=== PATIENT | male | born 1990 | race Caucasian/White ===

== ENCOUNTER 2021-03-18 19:17 | Emergency (ER) | payer SELFPAY ==
--- OUTSIDE RECORDS SUMMARY | 2021-03-18 19:20 | XMS REPORT | Continuity of Care Document ---
:1990 Author Organization [facility] t Address [address] [place] [address] [address]. [address]. [address] [place] [address] Care Team Providers Name Role Phone Rosa GREY Attending Clinician Unavailable Rosa GREY Admitting Clinician Unavailable Problems This patient has no known problems. Allergies, Adverse Reactions, Alerts This patient has no known allergies or adverse reactions. Medications This patient has no known medications. Procedures This patient has no known procedures. Encounters Start End Encounter Admission Attending Care Care Encounter Source Date/Time Date/Time Type Type Clinicians Facility Department ID 2018-06-14 2018-06-14 Outpatient [facility] [id number] [place] 08:50:00 09:29:00 [facility] Results This patient has no known results.
--- NOTE | 2021-03-18 19:59 | ER ---
Nurse's Notes [facility] Name: Indra Arbams Age: 30 yrs Sex: Male : 1990 Arrival Date: 03/18/2021 Time: 19:20 Bed 10 Private MD: Diagnosis: Displaced fracture of base of fourth metacarpal bone, right hand Presentation: 03/18 19:26 Coronavirus screen: Client denies travel out of the [place] in the last 14 days. At this ca1 time, the client does not indicate any symptoms associated with coronavirus-19. Ebola Screen: Patient negative for fever greater than or equal to 101.5 degrees Fahrenheit, and additional compatible Ebola Virus Disease symptoms Patient denies exposure to infectious person. Patient denies travel to an Ebola-affected area in the 21 days before illness onset. No symptoms or risks identified at this time. Initial Sepsis Screen: Does the patient meet any 2 criteria? No. Patient's initial sepsis screen is negative. Does the patient have a suspected source of infection? No. Patient's initial sepsis screen is negative. Risk Assessment: Do you want to hurt yourself or someone else? Patient reports no desire to harm self or others. Onset of symptoms was March 18, 2021. 19:26 Method Of Arrival: Ambulatory ca1 19:26 Acuity: CAITLIN 4 ca1 19:26 Chief complaint: Patient states: 3 nights [employer], punch a wooden door with R hand. R hand ca1 pain and swollen. Triage Assessment: 19:30 Injury Description: swollen right hand. rr5 Historical: - Allergies: 19:28 No Known Allergies; ca1 - Home Meds: 19:28 None [Active]; ca1 - PMHx: 19:28 None; ca1 - PSHx: 19:28 None; ca1 - Immunization history:: Adult Immunizations not up to date. - Social history:: Smoking status: Patient reports the use of cigarette tobacco products, smokes one-half pack cigarettes per day, Patient uses alcohol, occasionally. Screenin:30 Abuse screen: Denies threats or abuse. Denies injuries from another. Nutritional rr5 screening: No deficits noted. Tuberculosis screening: No symptoms or risk factors identified. Fall Risk None identified. Total So Fall Scale indicates No Risk (0-24 pts). Assessment: 19:30 General: Appears in no apparent distress. uncomfortable, Behavior is calm, cooperative, rr5 appropriate for age. 19:30 Pain: Complains of pain in right hand Pain currently is 2 out of 10 on a pain scale. rr5 Quality of pain is described as aching, Pain began suddenly, Is intermittent. Neuro: Level of Consciousness is awake, alert, obeys commands, Oriented to person, place, time. Cardiovascular: Capillary refill < 3 seconds Patient's skin is warm and dry. Respiratory: Airway is patent Respiratory effort is even, unlabored, Respiratory pattern is regular, symmetrical. Derm: Skin is intact, is healthy with good turgor, Skin temperature is warm. Musculoskeletal: Capillary refill < 3 seconds, Swelling present in right hand. 20:23 Reassessment: Patient appears in no apparent distress at this time. Patient is alert, rr5 oriented x 3, equal unlabored respirations, skin warm/dry/pink. provider rechecked the splint with order for may go home, discharge instruction given and explained without complaints made. Vital Signs: 19:26 Pulse 99; Resp 16 S; Temp 98.2; Pulse Ox 95% on R/A; Weight 65.77 kg (R); Height 5 ft. ca1 5 in. (165.10 cm) (R); Pain 2/10; 19:28 BP 151 / 103; ca1 20:22 BP 142 / 85; Pulse 85; Resp 19; Pulse Ox 98% ; rr5 19:26 Body Mass Index 24.13 (65.77 kg, 165.10 cm) ca1 ED Course: 19:20 Patient arrived in ED. es 19:26 Triage completed. ca1 19:28 [facility] Story [facility]C [facility] kb 19:28 Negrito Garcia MD is Attending Physician. kb 19:28 Arm band placed on right wrist. ca1 19:29 Brennon Mesa, RAUL is Primary Nurse. rr5 19:30 Patient has correct armband on for positive identification. Bed in low position. rr5 19:56 Hand Right 3 View XRAY In Process Unspecified. EDMS 20:14 Orthoglass splint: Ulnar gutter/Boxer splint applied on right forearm. ds4 20:22 No provider procedures requiring assistance completed. Patient did not have IV access rr5 during this emergency room visit. Administered Medications: No medications were administered Outcome: 19:58 Discharge ordered by . miguel 20:22 Discharged to home ambulatory. rr5 20:22 Condition: stable 20:22 Discharge instructions given to patient, Instructed on discharge instructions, follow up and referral plans. medication usage, Demonstrated understanding of instructions, follow-up care, medications, Prescriptions given X 1. 20:24 Patient left the ED. rr5 Signatures: Dispatcher [employer] EDLuz Winn, APPLICATIONS ANALYST-C APPLICATIONS ANALYST-Yolis Mcgee Donovan ds4 Brennon Mesa, RN RN rr5 Lorraine Buitrago RN RN ca1
--- NOTE | 2021-03-18 19:59 | EDPHYS ---
Physician Documentation [facility] Name: Indra Abrams Age: 30 yrs Sex: Male : 1990 Arrival Date: 03/18/2021 Time: 19:20 Bed 10 Private MD: ED Physician Negrito Garcia HPI: 03/18 19:55 This 30 yrs old Male presents to ER via Ambulatory with complaints of Hand kb Injury. 19:55 The patient or guardian reports injury, pain, swelling, tenderness. The complaints kb affect the dorsum of right hand. Context: The problem was sustained outdoors, resulted from using own fist to strike, a solid object. Onset: The symptoms/episode began/occurred 3 day(s) ago. Modifying factors: The symptoms are alleviated by nothing, the symptoms are aggravated by nothing. Associated signs and symptoms: The patient has no apparent associated signs or symptoms. Severity of symptoms: At their worst the symptoms were moderate, in the emergency department the symptoms are unchanged. The patient has not experienced similar symptoms in the past. The patient has not recently seen a physician. Pt reports he punched a wooden post 3 days ago. Swelling and bruising hasn't gone away so he wanted to get it checked. Historical: - Allergies: 19:28 No Known Allergies; ca1 - Home Meds: 19:28 None [Active]; ca1 - PMHx: 19:28 None; ca1 - PSHx: 19:28 None; ca1 - Immunization history:: Adult Immunizations not up to date. - Social history:: Smoking status: Patient reports the use of cigarette tobacco products, smokes one-half pack cigarettes per day, Patient uses alcohol, occasionally. ROS: 19:55 Constitutional: Negative for fever, chills, and weight loss. kb 19:55 MS/extremity: Positive for ecchymosis, pain, swelling, tenderness, of the dorsum of right hand. 19:55 All other systems are negative. Exam: 19:53 Constitutional: This is a well developed, well nourished patient who is awake, alert, kb and in no acute distress. Head/Face: Normocephalic, atraumatic. ENT: Moist Mucous membranes Respiratory: Respirations even and unlabored. No increased work of breathing, no retractions or nasal flaring. Neuro: Awake and alert, GCS 15, oriented to person, place, time, and situation. Moves all extremities. Normal gait. Psych: Awake, alert, with orientation to person, place and time. Behavior, mood, and affect are within normal limits. 19:53 Musculoskeletal/extremity: Extremities: grossly normal except: noted in the dorsum of right hand: ecchymosis, pain, swelling, tenderness, ROM: intact in all extremities, Circulation is intact in all extremities. Sensation intact. 19:53 Skin: Appearance: normal except for affected area, ecchymosis, noted on the, right hand, that are mild, that are moderate, of the dorsum of right hand, swelling, noted on the right hand, that are moderate. Vital Signs: 19:26 Pulse 99; Resp 16 S; Temp 98.2; Pulse Ox 95% on R/A; Weight 65.77 kg (R); Height 5 ft. ca1 5 in. (165.10 cm) (R); Pain 2/10; 19:28 BP 151 / 103; ca1 20:22 BP 142 / 85; Pulse 85; Resp 19; Pulse Ox 98% ; rr5 19:26 Body Mass Index 24.13 (65.77 kg, 165.10 cm) ca1 MDM: 19:29 Patient medically screened. kb 19:53 Data reviewed: vital signs, nurses notes. Data interpreted: Pulse oximetry: on room air kb is 95 %. Interpretation: normal. Counseling: I had a detailed discussion with the patient and/or guardian regarding: the historical points, exam findings, and any diagnostic results supporting the discharge/admit diagnosis, radiology results, the need for outpatient follow up, a orthopedic surgeon, to return to the emergency department if symptoms worsen or persist or if there are any questions or concerns that arise at home. 19:57 Test interpretation: by ED physician or midlevel provider: plain radiologic studies, kb minimally displaced fracture fourth metacarpal right hand. 03/18 19:28 Order name: Hand Right 3 View XRAY; Complete Time: 20:06 kb 03/18 19:50 Order name: Ulnar Gutter splint; Complete Time: 20:16 kb Administered Medications: No medications were administered Disposition: 22:11 Co-signature as Attending Physician, Negrito Garcia MD. [email or web address] Disposition: 03/18/21 19:58 Discharged to Home. Impression: Displaced fracture of base of fourth metacarpal bone, right hand. - Condition is Stable. - Discharge Instructions: Metacarpal Fracture, [id number]. - Prescriptions for Ibuprofen 600 mg Oral Tablet - take 1 tablet by ORAL route every 6 hours As needed take with food; 30 tablet. - Medication Reconciliation Form, Thank You Letter, Antibiotic Education, Prescription Opioid Use, Work release form form. - Follow up: Emergency Department; When: As needed; Reason: Worsening of condition. Follow up: Private Physician; When: 2 - 3 days; Reason: Recheck today's complaints, Continuance of care, Re-evaluation by your physician. Signatures: Dispatcher [employer] EDMS Luz Story, [employer] CRM DEVELOPER-C [employer] CRM DEVELOPER-Negrito Smith MD MD pkl Roque, Raymond RN RN rr5 Lorraine Buitrago RN RN ca1 Corrections: (The following items were deleted from the chart) 20:24 19:58 03/18/2021 19:58 Discharged to Home. Impression: Displaced fracture of base of rr5 fourth metacarpal bone, right hand. Condition is Stable. Forms are Medication Reconciliation Form, Thank You Letter, Antibiotic Education, Prescription Opioid Use. Follow up: Emergency Department; When: As needed; Reason: Worsening of condition. Follow up: Private Physician; When: 2 - 3 days; Reason: Recheck today's complaints, Continuance of care, Re-evaluation by your physician. kb
--- NOTE | 2021-03-18 20:05 | RAD REPORT ---
EXAM DESCRIPTION: RAD - Hand Right 3 View - 03/18/2021 7:57 pm CLINICAL HISTORY: PAIN COMPARISON: <Comparisons> FINDINGS: Thin linear fracture seen involving midshaft fourth metacarpal. Mild adjacent soft tissue swelling.
[2021-03-18 20:40] VITALS: TEMP 98.2
[2021-03-18 20:42] VITALS: BP 142/85; O2SAT 98
== END 2021-03-18 20:24 | disposition home or self-care (01) ==
LOC: ER 19:17
PROC: 2W3CX1Z Immobilization of Right Lower Arm using Splint (ICD-10-PCS; principal; 2021-03-18)
DX: S62.314A Displaced fracture of base of fourth metacarpal bone, right hand, initial encounter for closed fracture (principal); F17.210 Nicotine dependence, cigarettes, uncomplicated; W22.09XA Striking against other stationary object, initial encounter
CPT/HCPCS: 99283

== ENCOUNTER 2021-08-27 19:27 | Emergency (ER) | payer SELFPAY ==
[2021-08-27 19:56] LABS: Urine Blood Trace-intact (Negative); Urine Glucose Negative (Negative); Urine Protein 1+ (Negative)
[2021-08-27] MEDS ORDERED: NA CHLORIDE 0.9% 1,000 ML ONE ×2 (20:24→22:21)
[2021-08-27] MEDS ORDERED: MORPHINE 4 MG/ML SYR ONE (20:30)
[2021-08-27] MEDS ORDERED: ONDANSETRON 4 MG/2 ML VIAL ONE (20:30)
[2021-08-27 20:37] LABS: Absolute Lymphocytes (CBC) 1.5 K/uL (0.7-4.9); Basophils % 1.2 % (0-1.3); Hematocrit 52.5 % (39.6-49.0); Lymphocytes % 23.3 % (15.3-44.8); MPV 7.7 fL (7.6-11.3)
[2021-08-27 20:54] LABS: Albumin 4.2 g/dL (3.4-5.0); Bilirubin Direct 0.1 mg/dL (0-0.2); Bilirubin Total 0.4 mg/dL (0.2-1.0); Potassium 3.7 mmol/L (3.5-5.1); Protein, Total 7.9 g/dL (6.4-8.2)
--- NOTE | 2021-08-27 21:57 | RAD REPORT ---
EXAM DESCRIPTION: CTAbdomen Pelvis W Contrast - 08/27/2021 9:46 pm CLINICAL HISTORY: abdominal COMPARISON: No comparisons TECHNIQUE: CT of the abdomen and pelvis was performed. All CT scans are performed using dose optimization technique as appropriate and may include automated exposure control or mA/KV adjustment according to patient size. FINDINGS: Lower chest: No acute abnormality. Liver: Subcentimeter low-density lesion in the posterior aspect of the right hepatic lobe is likely b enign. Biliary: No biliary ductal dilatation. Stomach: No significant focal abnormality. Duodenum: No significant focal abnormality. Pancreas: Stranding is present around the pancreatic head and uncinate Spleen: No significant abnormality. Adrenal: No suspicious lesions. Kidney/ureter: No hydronephrosis. No renal calculi. Retroperitoneum: No retroperitoneal adenopathy. Vascular: No aneurysm. Bowel: No significant focal abnormality. Normal appendix. Peritoneum: No ascites or free air. Bladder: Grossly unremarkable. Reproductive: No adnexal masses. Bones: No acute fracture. Other: n/a IMPRESSION: Stranding around the pancreatic head likely reflecting acute pancreatitis. No complicati ng features.
[2021-08-27] MEDS ORDERED: FAMOTIDINE 20 MG/2 ML VIAL IV ONE (22:21)
[2021-08-27] MEDS ORDERED: FENTANYL CITR 100 MCG/2 ML ONE (22:21)
[2021-08-27] MEDS ORDERED: HYDROMORPHONE HCL 1 MG/ML INJ ONE (23:34)
--- NOTE | 2021-08-28 00:24 | ER ---
Nurse's Notes [facility] Name: Indra Abrams Age: 31 yrs Sex: Male : 1990 Arrival Date: 08/27/2021 Time: 19:28 Bed 30 Private MD: Diagnosis: Acute Pancreatitis Presentation: 08/27 19:37 Chief complaint: Patient states: c/o lower abd pain that started this morning, pain sj1 progressively getting worse and now radiating to all quads, reports one episode of vomiting. Denies nausea and diarrhea at this time. Coronavirus screen: Vaccine status: Patient reports being unvaccinated. Ebola Screen: No symptoms or risks identified at this time. Initial Sepsis Screen: Does the patient meet any 2 criteria? No. Patient's initial sepsis screen is negative. Does the patient have a suspected source of infection? No. Patient's initial sepsis screen is negative. Risk Assessment: Do you want to hurt yourself or someone else? Patient reports no desire to harm self or others. Onset of symptoms was August 27, 2021. 19:37 Method Of Arrival: Ambulatory 1 19:37 Acuity: CAITLIN 3 sj1 Triage Assessment: 19:41 General: Appears in no apparent distress. uncomfortable, Behavior is calm, cooperative, sj1 appropriate for age. Pain: Complains of pain in abdomen Pain does not radiate. Pain currently is 8 out of 10 on a pain scale. at worst was 10 out of 10 on a pain scale. level that patient reports is acceptable is 0 out of 10 on a pain scale. Quality of pain is described as crampy, Pain began this morning Is continuous. EENT: No signs and/or symptoms were reported regarding the EENT system. Neuro: Level of Consciousness is awake, alert, obeys commands, Oriented to person, place, time, situation. Cardiovascular: No deficits noted. Respiratory: No deficits noted. GI: Reports lower abdominal pain, upper abdominal pain, vomiting. : No signs and/or symptoms were reported regarding the genitourinary system. Derm: No signs and/or symptoms reported regarding the dermatologic system. Musculoskeletal: No signs and/or symptoms reported regarding the musculoskeletal system. Historical: - Allergies: 19:41 No Known Allergies; sj1 - Home Meds: 19:41 None [Active]; sj1 - PMHx: 19:41 Depression; sj1 - PSHx: 19:41 None; sj1 - Immunization history:: Client reports having NOT received the Covid vaccine. - Social history:: Smoking status: Patient reports the use of cigarette tobacco products, smokes one-half pack cigarettes per day, Patient uses alcohol, on a daily basis. Patient/guardian denies using street drugs. Screenin:43 Abuse screen: Denies threats or abuse. Denies injuries from another. Nutritional sj1 screening: No deficits noted. Tuberculosis screening: No symptoms or risk factors identified. Fall Risk None identified. Assessment: 19:43 GI: Abd is soft. sj1 19:50 General: Appears uncomfortable, well groomed, Behavior is cooperative, anxious, Smells dc2 of alcohol. Pain: Complains of pain in generalized abdomen. 19:50 Neuro: No deficits noted. Denies blurred vision dizziness, headache. Respiratory: dc2 Airway is patent Breath sounds are clear bilaterally. Denies shortness of breath labored breathing. GI: Abdomen is round non-distended, Last BM was August 27, 2021. Bowel sounds present X 4 quads. Reports lower abdominal pain, upper abdominal pain, Parent/caregiver reports the patient having pain, States has had pain since waking up this morning. Pt reports drinking ETOH everynight for sleep. : No signs and/or symptoms were reported regarding the genitourinary system. Derm: No deficits noted. No signs and/or symptoms reported regarding the dermatologic system. Musculoskeletal: No deficits noted. 20:30 Pain: Complains of pain in Generalized abdomen, states pain med has helped, PRS 5/10 at dc2 this time. 22:30 Reassessment: Pt very restless, states pain is extremely bad and meds aren't helping. dc2 Will notify provider. 22:53 Reassessment: TEDDY Shipman to bedside to speak to patient regarding test results and pain. dc2 Vital Signs: 19:37 BP 171 / 111; Pulse 70; Resp 20 S; Temp 97.6; Pulse Ox 100% on R/A; Weight 65.77 kg sj1 (R); Height 5 ft. 5 in. (165.10 cm) (R); Pain 8/10; 20:00 BP 154 / 110; Pulse 84; Resp 19; Pulse Ox 100% on R/A; Pain 10/10; dc2 20:58 BP 165 / 118; Pulse 93; Resp 18; Pulse Ox 100% ; Pain 4/10; dc2 22:30 BP 189 / 120; Pulse 66; Resp 19; Pulse Ox 100% ; Pain 10/10; dc2 08/28 00:15 BP 180 / 102; Pulse 76; Resp 17; Pulse Ox 99% ; Pain 2/10; dc2 08/27 19:37 Body Mass Index 24.13 (65.77 kg, 165.10 cm) [facility] ED Course: 08/27 19:28 Patient arrived in ED. ja2 19:30 Ubmerto Mccall PA is PHCP. [facility] 19:30 Checo Lopez MD is Attending Physician. [facility] 19:41 Triage completed. sj1 19:41 Arm band placed on right wrist. sj1 19:43 Patient has correct armband on for positive identification. Bed in low position. Call sj1 light in reach. Side rails up X 1. 20:01 Inserted saline lock: 20 gauge in right antecubital area, using aseptic technique. dc2 Blood collected. 20:02 Basic Metabolic Panel Sent. dc2 20:02 CBC with Diff Sent. dc2 20:02 Hepatic Function Sent. dc2 20:02 Lipase Sent. dc2 20:17 Radha Whipple, RN is Primary Nurse. dc2 20:17 No provider procedures requiring assistance completed. dc2 20:59 No apparent distress. Resting quietly. Awaiting lab results. dc2 20:59 Bed in low position. Call light in reach. Side rails up X 1. monitor worker on. Pulse dc2 ox on. NIBP on. 21:46 CT Abd/Pelvis - IV Contrast Only In Process Unspecified. EDMS 21:[address] Patient moved back from [address]. dc2 21:[address] via wheelchair. dc2 08/28 00:23 Ricardo Cabrera MD is Referral Physician. [facility] 00:30 IV discontinued, intact, bleeding controlled, No redness/swelling at site. Pressure dc2 dressing applied. Administered Medications: 08/27 20:00 Drug: morphine 4 mg Route: IVP; Site: right antecubital; dc2 20:30 Follow up: Response: Pain is decreased dc2 20:58 Follow up: Response: Pain is decreased dc2 20:01 Drug: NS 0.9% 1000 ml Route: IV; Rate: 1 bolus; Infused Over: 1 hrs; Site: right dc2 antecubital; 20:58 Follow up: IV Status: Completed infusion; IV Intake: 1000ml dc2 21:00 Follow up: IV Status: Completed infusion; IV Intake: 1000ml dc2 20:10 Drug: Zofran (Ondansetron) 4 mg Route: IVP; Infused Over: 1 mins; Site: right dc2 antecubital; 20:32 Follow up: Response: No adverse reaction dc2 20:57 Follow up: Response: Nausea is decreased dc2 21:53 Drug: NS 0.9% 1000 ml Route: IV; Rate: 1 bolus; Infused Over: 1 hrs; Site: right dc2 antecubital; Delivery: Primary tubing; 23:00 Follow up: IV Status: Completed infusion; IV Intake: 1000ml dc2 21:56 Drug: fentaNYL (PF) 50 mcg Route: IVP; Infused Over: 2 mins; Site: right antecubital; dc2 22:30 Follow up: Response: Pain is unchanged, physician notified dc2 21:57 Drug: Pepcid (famotidine) 20 mg Route: IVP; Site: right antecubital; dc2 22:49 Follow up: Response: Pain is unchanged, physician notified dc2 23:20 Drug: Dilaudid (HYDROmorphone) 1 mg Route: IVP; Infused Over: 3 mins; Site: right dc2 antecubital; 08/28 00:00 Follow up: Response: Pain is decreased dc2 Intake: 08/27 20:58 IV: 1000ml; Total: 1000ml. dc2 21:00 IV: 1000ml; Total: 2000ml. dc2 23:00 IV: 1000ml; Total: 3000ml. dc2 Outcome: 08/28 00:23 Discharge ordered by MD. ya 00:30 Discharged to home ambulatory. dc2 00:30 Condition: stable 00:30 Discharge instructions given to patient, Instructed on discharge instructions, Demonstrated understanding of instructions, follow-up care. 00:37 Patient left the ED. dc2 Signatures: Dispatcher [employer] EDUmberto Lovell PA PA jmm Alexander, Jessica ja2 Charters, Denise, RN RN dc2 Kelby, Sade, RN RN sj1
--- NOTE | 2021-08-28 00:24 | EDPHYS ---
Physician Documentation [facility] Name: Indra Abrams Age: 31 yrs Sex: Male : 1990 Arrival Date: 08/27/2021 Time: 19:28 Bed 30 Private MD: NAZ Physician Checo Lopez HPI: 08/27 19:54 This 31 yrs old Male presents to ER via Ambulatory with complaints of jmm Abdominal Pain. 19:54 The patient presents with abdominal pain. Onset: The symptoms/episode began/occurred jmm gradually. The symptoms do not radiate. Associated signs and symptoms: Pertinent positives: nausea and vomiting, abdominal pain. The symptoms are described as achy. Modifying factors: The symptoms are alleviated by nothing, the symptoms are aggravated by alcohol. The patient has not experienced similar symptoms in the past. Historical: - Allergies: 19:41 No Known Allergies; sj1 - Home Meds: 19:41 None [Active]; sj1 - PMHx: 19:41 Depression; sj1 - PSHx: 19:41 None; sj1 - Immunization history:: Client reports having NOT received the Covid vaccine. - Social history:: Smoking status: Patient reports the use of cigarette tobacco products, smokes one-half pack cigarettes per day, Patient uses alcohol, on a daily basis. Patient/guardian denies using street drugs. ROS: 19:54 Constitutional: Negative for fever, chills, and weight loss, Cardiovascular: Negative jmm for chest pain, palpitations, and edema, Respiratory: Negative for shortness of breath, cough, wheezing, and pleuritic chest pain. 19:54 Abdomen/GI: Positive for abdominal pain. 19:54 All other systems are negative. Exam: 19:54 Constitutional: This is a well developed, well nourished patient who is awake, alert, jmm and in no acute distress. Head/Face: atraumatic. Eyes: EOMI, no conjunctival erythema appreciated ENT: Moist Mucus Membranes Neck: Trachea midline, Supple Chest/axilla: Normal chest wall appearance and motion. Cardiovascular: Regular rate and rhythm. No edema appreciated Respiratory: Normal respirations, no respiratory distress appreciated 19:54 Skin: General appearance color normal MS/ Extremity: Moves all extremities, no obvious deformities appreciated, no edema noted to the lower extremities Neuro: Awake and alert, normal gait Psych: Behavior is normal, Mood is normal, Patient is cooperative and pleasant 19:54 Abdomen/GI: Inspection: abdomen appears normal, Bowel sounds: normal, Palpation: soft, moderate abdominal tenderness, in all quadrants. Vital Signs: 19:37 BP 171 / 111; Pulse 70; Resp 20 S; Temp 97.6; Pulse Ox 100% on R/A; Weight 65.77 kg [facility] (R); Height 5 ft. 5 in. (165.10 cm) (R); Pain 8/10; 20:00 BP 154 / 110; Pulse 84; Resp 19; Pulse Ox 100% on R/A; Pain 10/10; dc2 20:58 BP 165 / 118; Pulse 93; Resp 18; Pulse Ox 100% ; Pain 4/10; dc2 22:30 BP 189 / 120; Pulse 66; Resp 19; Pulse Ox 100% ; Pain 10/10; dc2 08/28 00:15 BP 180 / 102; Pulse 76; Resp 17; Pulse Ox 99% ; Pain 2/10; dc2 08/27 19:37 Body Mass Index 24.13 (65.77 kg, 165.10 cm) [facility] MDM: 08/27 19:54 Patient medically screened. [facility] 08/28 00:15 Data reviewed: vital signs, nurses notes. Counseling: I had a detailed discussion with bhakti the patient and/or guardian regarding: the historical points, exam findings, and any diagnostic results supporting the discharge/admit diagnosis, lab results, radiology results, the need for outpatient follow up, to return to the emergency department if symptoms worsen or persist or if there are any questions or concerns that arise at home. ED course: Patient advised to follow up with pcp and otherwise given strict return precautions. Patient understood and agrees with the plan of care. . 08/27 19:56 Order name: Urine Dipstick-Ancillary; Complete Time: 20:03 [facility] 08/27 19:58 Order name: Basic Metabolic Panel; Complete Time: 20:59 [facility] 08/27 19:58 Order name: CBC with Diff; Complete Time: 20:51 [facility] 08/27 19:58 Order name: Hepatic Function; Complete Time: 20:59 [facility] 08/27 19:58 Order name: Lipase; Complete Time: 20:59 [facility] 08/27 21:23 Order name: CT Abd/Pelvis - IV Contrast Only; Complete Time: 21:59 [facility] 08/27 19:58 Order name: IV Saline Lock; Complete Time: 20:02 [facility] 08/27 19:58 Order name: Labs collected and sent; Complete Time: 20:02 [facility] Administered Medications: 08/27 20:00 Drug: morphine 4 mg Route: IVP; Site: right antecubital; dc2 20:30 Follow up: Response: Pain is decreased dc2 20:58 Follow up: Response: Pain is decreased dc2 20:01 Drug: NS 0.9% 1000 ml Route: IV; Rate: 1 bolus; Infused Over: 1 hrs; Site: right dc2 antecubital; 20:58 Follow up: IV Status: Completed infusion; IV Intake: 1000ml dc2 21:00 Follow up: IV Status: Completed infusion; IV Intake: 1000ml dc2 20:10 Drug: Zofran (Ondansetron) 4 mg Route: IVP; Infused Over: 1 mins; Site: right dc2 antecubital; 20:32 Follow up: Response: No adverse reaction dc2 20:57 Follow up: Response: Nausea is decreased dc2 21:53 Drug: NS 0.9% 1000 ml Route: IV; Rate: 1 bolus; Infused Over: 1 hrs; Site: right dc2 antecubital; Delivery: Primary tubing; 23:00 Follow up: IV Status: Completed infusion; IV Intake: 1000ml dc2 21:56 Drug: fentaNYL (PF) 50 mcg Route: IVP; Infused Over: 2 mins; Site: right antecubital; dc2 22:30 Follow up: Response: Pain is unchanged, physician notified dc2 21:57 Drug: Pepcid (famotidine) 20 mg Route: IVP; Site: right antecubital; dc2 22:49 Follow up: Response: Pain is unchanged, physician notified dc2 23:20 Drug: Dilaudid (HYDROmorphone) 1 mg Route: IVP; Infused Over: 3 mins; Site: right dc2 antecubital; 08/28 00:00 Follow up: Response: Pain is decreased dc2 Disposition: 08:02 Co-signature as Attending Physician, Checo Lopez MD I agree with the assessment and genaro plan of care. Disposition Summary: 08/28/21 00:23 Discharge Ordered Location: Home [facility] Condition: Stable jm Diagnosis - Acute Pancreatitis [facility] Followup: [facility] - With: Ricardo Cabrera MD - When: 2 - 3 days - Reason: Recheck today's complaints, Continuance of care, Re-evaluation by your physician Discharge Instructions: - Discharge Summary Sheet [facility] - Acute Pancreatitis [facility] Forms: - Medication Reconciliation Form [facility] - Thank You Letter [facility] - Antibiotic Education [facility] - Prescription Opioid Use [facility] - Work release form mw2 Signatures: Dispatcher [employer] EDCheco Torres MD MD cha Mickail, Joel, PA PA [facility] Radha Whipple RN RN dc2 Dora Lama RN RN sj1
[2021-08-28 00:46] VITALS: TEMP 97.6
[2021-08-28 00:51] VITALS: BP 180/102; O2SAT 99
== END 2021-08-28 00:37 | disposition home or self-care (01) ==
LOC: ER 19:27
DX: K85.90 Acute pancreatitis without necrosis or infection, unspecified (principal); F17.210 Nicotine dependence, cigarettes, uncomplicated
CPT/HCPCS: 36415; 74177; 80048; 80076; 81003; 83690; 85025; 96361; 96374; 96375; 99285; J1170; J2405; J3010; J7030; Q9967

== ENCOUNTER 2021-12-05 06:13 | Emergency (ER) | payer SELFPAY ==
--- OUTSIDE RECORDS SUMMARY | 2021-12-05 06:19 | XMS REPORT | Continuity of Care Document ---
:1990 Author Organization [facility] t Address [address] [place] [address] [address] [place] [address] Care Team Providers Name Role Phone Rosa [...] Department ID 2018-06-14 2018-06-14 Outpatient [facility] [id number] [place] 08:50:00 09:29:00 [facility] Results This patient has no known results.
[2021-12-05] MEDS ORDERED: NA CHLORIDE 0.9% 1,000 ML ONE (06:24)
[2021-12-05] MEDS ORDERED: MORPHINE 4 MG/ML SYR ONE (06:24)
[2021-12-05 06:36] LABS: Absolute Lymphocytes (CBC) 1.2 K/uL (0.7-4.9); Hematocrit 50.1 % (39.6-49.0); Lymphocytes % 9.3 % (15.3-44.8); MPV 7.8 fL (7.6-11.3); RBC Red Blood Cell Count 5.16 M/uL (4.33-5.43)
[2021-12-05 07:11] LABS: Albumin 3.7 g/dL (3.4-5.0); Bilirubin Direct 0.4 mg/dL (0-0.2); Bilirubin Total 1.6 mg/dL (0.2-1.0); Potassium 3.3 mmol/L (3.5-5.1); Protein, Total 7.1 g/dL (6.4-8.2)
--- NOTE | 2021-12-05 07:47 | RAD REPORT ---
EXAM DESCRIPTION: CT - Abdomen Pelvis W Contrast - 12/05/2021 7:35 am CLINICAL HISTORY: Abdominal pain COMPARISON: August 2021 TECHNIQUE: Computed axial tomography of the abdomen pelvis was obtained. 100 cc Isovue-300 was admin istered intravenously. Oral contrast was not requested which limits evaluation of bowel. All CT scans are performed using dose optimization technique as appropriate and may include automated exposure control or mA/KV adjustment according to patient size. FINDINGS: The liver, spleen, adrenal and kidneys appear unremarkable. Pancreas is normal size. Mild peripancreatic stranding. No pseudocyst There is no evidence of diverticulitis. Normal appendix. Borderline gallbladder distention. IMPRESSION: Mild pancreatitis Borderline gallbladder distention
--- NOTE | 2021-12-05 08:12 | RAD REPORT ---
EXAM DESCRIPTION: US - Abdomen Exam Limited - 12/05/2021 7:40 am CLINICAL HISTORY: Abdominal pain. COMPARISON: None. FINDINGS: The gallbladder wall is not thickened. A gallstone is not seen. Small amount of gallbladd er sludge. Gallbladder upper limits normal caliber The biliary tree is normal caliber. IMPRESSION: Small amount of gallbladder sludge
[2021-12-05] MEDS ORDERED: KETOROLAC 30 MG/ML INJ ONE (08:41)
--- NOTE | 2021-12-05 09:25 | ER ---
Nurse's Notes [facility] Name: Indra Abrams Age: 31 yrs Sex: Male : 1990 Arrival Date: 12/05/2021 Time: 06:15 Bed 6 Private MD: Diagnosis: Alcohol induced acute pancreatitis without necrosis or infection;Abnormal results of liver function studies Presentation: 12/05 06:15 Chief complaint: Patient states: C/o abdominal pain since last night, pain started in mk the RUQ and radiates to all 4 quadrants. Hx pancreatitis, HTN. Coronavirus screen: Vaccine status: Patient reports being unvaccinated. Ebola Screen: Patient negative for fever greater than or equal to 101.5 degrees Fahrenheit, and additional compatible Ebola Virus Disease symptoms. Initial Sepsis Screen: Does the patient meet any 2 criteria? No. Patient's initial sepsis screen is negative. Does the patient have a suspected source of infection? No. Patient's initial sepsis screen is negative. Risk Assessment: Do you want to hurt yourself or someone else? Patient reports no desire to harm self or others. Onset of symptoms was December 05, 2021. 06:15 Method Of Arrival: EMS: [facility] 06:15 Acuity: CAITLIN 3 Triage Assessment: 06:17 General: Appears in no apparent distress. General: Behavior is calm, cooperative. Pain: Complains of pain in abdomen to rest of abdomen Pain currently is 8 out of 10 on a pain scale. Quality of pain is described as radiating, Pain began gradually, 1 day ago. Is lasting more than 1 hour. EENT:. Neuro: Level of Consciousness is awake, alert, obeys commands, Oriented to person, place, time, situation, Hide Washer are equal bilaterally Gait is steady, Speech is normal. Cardiovascular: Heart tones S1 S2 present Capillary refill < 3 seconds in bilateral fingers toes Pulses are 2+ in right radial artery, right dorsalis pedis artery, left radial artery and left dorsalis pedis artery Rhythm is regular. Respiratory: Airway is patent Trachea midline Respiratory effort is even, unlabored, Respiratory pattern is regular, symmetrical, Breath sounds are clear. GI: Abdomen is flat, non-distended, Bowel sounds present X 4 quads. Abd is soft Abdomen is tender to palpation X 4 quads. : No signs and/or symptoms were reported regarding the genitourinary system. Derm: Skin is intact, is healthy with good turgor, Skin is dry, Skin temperature is warm. Musculoskeletal: Circulation, motion, and sensation intact. Capillary refill < 3 seconds, in bilateral fingers. toes. Range of motion: intact in all extremities. Historical: - Allergies: 06:20 No Known Allergies; mk - Home Meds: 06:20 None [Active]; mk - PMHx: 06:20 Hypertensive disorder; Pancreatitis; mk - Immunization history:: Adult Immunizations not up to date. - Social history:: Smoking status: Patient reports the use of cigarette tobacco products. Screenin:17 Abuse screen: Denies threats or abuse. Nutritional screening: No deficits noted. Tuberculosis screening: No symptoms or risk factors identified. Fall Risk No fall in past 12 months (0 pts). No secondary diagnosis (0 pts). IV access (20 points). Ambulatory Aid- None/Bed Rest/Nurse Assist (0 pts). Gait- Normal/Bed Rest/Wheelchair (0 pts) Mental Status- Oriented to own ability (0 pts). Total So Fall Scale indicates No Risk (0-24 pts). Assessment: 07:08 Reassessment: No changes from previously documented assessment. General: Appears in no pappas apparent distress. Behavior is calm, cooperative. Pain: Complains of pain in abdomen. GI: Reports cramping, Pain is 6 out of 10 on a pain scale. Vital Signs: 06:15 BP 174 / 110; Pulse 81; Resp 18; Temp 98.4; Pulse Ox 100% on R/A; mk 07:08 BP 163 / 107; Pulse 86; Resp 18; Pulse Ox 99% on R/A; pappas 08:14 BP 161 / 101; Pulse 89; Resp 18; Pulse Ox 96% on R/A; pappas ED Course: 06:15 Patient arrived in ED. wm 06:15 Kathi Barrios, RN is Primary Nurse. mk 06:17 Triage completed. mk 06:17 Luz Story FNP-C is PHCP. kb 06:17 Negrito Garcia MD is Attending Physician. kb 06:19 Arm band placed on Patient placed. mk 06:19 Hepatic Function Sent. st1 06:19 Basic Metabolic Panel Sent. st1 06:19 Lipase Sent. st1 06:19 CBC with Diff Sent. st1 06:19 No provider procedures requiring assistance completed. Maintain EMS IV. Dressing mk intact. Good blood return noted. Site clean \T\ dry. Gauge \T\ site: 20G RFA. 06:20 Patient has correct armband on for positive identification. Allergy band placed. Bed in mk low position. Call light in reach. Side rails up X 1. Pulse ox on. NIBP on. 07:35 CT Abd/Pelvis - IV Contrast Only In Process Unspecified. EDMS 07:39 US Abdomen Limited In Process Unspecified. EDMS 09:32 IV discontinued, intact, Pressure dressing applied. pappas Administered Medications: 06:24 Drug: morphine 4 mg Route: IVP; Site: right forearm; st1 08:37 Follow up: Response: No adverse reaction pappas 06:25 Drug: NS 0.9% 1000 ml Route: IV; Rate: 1000 ml; Site: right forearm; st1 08:38 Follow up: IV Status: Completed infusion pappas 08:40 Drug: Ketorolac 15 mg Route: IVP; Site: right forearm; pappas 09:30 Follow up: Response: No adverse reaction; No change in condition [email or web address] Outcome: 09:24 Discharge ordered by . miguel 09:32 Discharged to home pappas 09:32 Condition: good 09:32 Discharge instructions given to patient, Prescriptions given X 2. 09:38 Patient left the ED. [email or web address] Signatures: Dispatcher [employer] EDLuz Winn, OSTEOLOGY TEACHER-C OSTEOLOGY TEACHER-Melissa Villarreal Jennifer, RN RN jg9 Alisia-StageStacy iyer RN RN ha Kotarski, Madeline, RN RN mk Tingle, Shellie, RN RN st1 Corrections: (The following items were deleted from the chart) 06:20 06:20 PMHx: Depression; mk mk
--- NOTE | 2021-12-05 09:25 | EDPHYS ---
Physician Documentation [facility] Name: Indra Abrams Age: 31 yrs Sex: Male : 1990 Arrival Date: 12/05/2021 Time: 06:15 Bed 6 Private MD: ED Physician Negrito Garcia HPI: 12/05 06:29 This 31 yrs old Male presents to ER via EMS with complaints of Abdominal Pain. kb 06:29 The patient presents with abdominal pain in the left upper quadrant, in the left lower kb quadrant. Onset: The symptoms/episode began/occurred yesterday. The symptoms do not radiate. Associated signs and symptoms: Pertinent positives: nausea, vomiting, Pertinent negatives: fever. The symptoms are described as constant. Modifying factors: The symptoms are alleviated by nothing, the symptoms are aggravated by nothing. Severity of pain: At its worst the pain was moderate in the emergency department the pain is unchanged. The patient has not experienced similar symptoms in the past. The patient has not recently seen a physician. Pt reports abd pain that started yesterday morning and got worse last night. States he has a history of pancreatitis and this feels the same. Historical: - Allergies: 06:20 No Known Allergies; mk - Home Meds: 06:20 None [Active]; mk - PMHx: 06:20 Hypertensive disorder; Pancreatitis; mk - Immunization history:: Adult Immunizations not up to date. - Social history:: Smoking status: Patient reports the use of cigarette tobacco products. ROS: 06:28 Constitutional: Negative for fever, chills, and weight loss. kb 06:28 Abdomen/GI: Positive for abdominal pain, nausea and vomiting, Negative for diarrhea, constipation. 06:28 All other systems are negative. Exam: 06:28 Constitutional: This is a well developed, well nourished patient who is awake, alert, kb and in no acute distress. Head/Face: Normocephalic, atraumatic. ENT: Moist Mucous membranes Respiratory: Respirations even and unlabored. No increased work of breathing. Talking in full sentences Skin: Warm, dry with normal turgor. Normal color. MS/ Extremity: Pulses equal, no cyanosis. Neurovascular intact. Full, normal range of motion. Neuro: Awake and alert, GCS 15, oriented to person, place, time, and situation. Moves all extremities. Normal gait. Psych: Awake, alert, with orientation to person, place and time. Behavior, mood, and affect are within normal limits. 06:28 Abdomen/GI: Inspection: abdomen appears normal, Bowel sounds: normal, in all quadrants, Palpation: soft, in all quadrants, mild abdominal tenderness, in the right upper quadrant, moderate abdominal tenderness, in the left upper quadrant and left lower quadrant. Vital Signs: 06:15 BP 174 / 110; Pulse 81; Resp 18; Temp 98.4; Pulse Ox 100% on R/A; mk 07:08 BP 163 / 107; Pulse 86; Resp 18; Pulse Ox 99% on R/A; pappas 08:14 BP 161 / 101; Pulse 89; Resp 18; Pulse Ox 96% on R/A; pappas MDM: 06:17 Patient medically screened. kb 06:29 Data reviewed: vital signs, nurses notes. Data interpreted: Pulse oximetry: on room air kb is 100 %. Interpretation: normal. 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 09:25 ED course: Pt attests to drinking a 6 pack of high alcohol content beer 5-6 days a week.kb 09:34 ED course: Pt resting comfortably on stretcher upon discharge. No obvious pain. kb 09:39 Data reviewed: I have discussed the patient's presentation/case with the attending Emergency Department Physician;. 12/05 06:18 Order name: Basic Metabolic Panel; Complete Time: 07:13 kb 12/05 06:18 Order name: CBC with Diff; Complete Time: 06:49 kb 12/05 06:18 Order name: Hepatic Function; Complete Time: 07:13 kb 12/05 06:18 Order name: Lipase; Complete Time: 07:13 kb 12/05 06:20 Order name: CT Abd/Pelvis - IV Contrast Only; Complete Time: 08:12 kb 12/05 07:14 Order name: US Abdomen Limited; Complete Time: 08:20 kb 12/05 06:18 Order name: IV Saline Lock; Complete Time: 06:18 kb 12/05 06:18 Order name: Labs collected and sent; Complete Time: 06:18 kb Administered Medications: 06:24 Drug: morphine 4 mg Route: IVP; Site: right forearm; st1 08:37 Follow up: Response: No adverse reaction 06:25 Drug: NS 0.9% 1000 ml Route: IV; Rate: 1000 ml; Site: right forearm; st1 08:38 Follow up: IV Status: Completed infusion pappas 08:40 Drug: Ketorolac 15 mg Route: IVP; Site: right forearm; 09:30 Follow up: Response: No adverse reaction; No change in condition [email or web address] Disposition Summary: 12/05/21 09:24 Discharge Ordered Location: Home kb Condition: Stable kb Diagnosis - Alcohol induced acute pancreatitis without necrosis or infection kb - Abnormal results of liver function studies kb Followup: kb - With: Emergency Department - When: As needed - Reason: Worsening of condition Followup: kb - With: Private Physician - When: 2 - 3 days - Reason: Recheck today's complaints, Continuance of care, Re-evaluation by your physician Discharge Instructions: - Discharge Summary Sheet kb - Acute Pancreatitis, [id number] kb Forms: - Medication Reconciliation Form kb - Thank You Letter kb - Antibiotic Education kb - Prescription Opioid Use kb - Work release form Prescriptions: - Zofran 4 mg Oral Tablet - take 1 tablet by ORAL route every 6 hours As needed; 20 tablet; Refills: 0, kb Product Selection Permitted - dicyclomine 20 mg Oral Tablet - take 1 tablet by ORAL route 4 times per day As needed; 20 tablet; Refills: 0, kb Product Selection Permitted Signatures: Dispatcher [employer] Luz Kim, KIMBERLYN-Joseph JOSEPHP-Stacy Russell RN RN Kathi Cook RN Vane Sommer RN RN stKaylah Clark RN jg9 Corrections: (The following items were deleted from the chart) 06:20 06:20 PMHx: Depression; charbel barger
[2021-12-05 09:43] VITALS: TEMP 98.4
[2021-12-05 09:46] VITALS: BP 161/101; O2SAT 96
== END 2021-12-05 09:38 | disposition home or self-care (01) ==
LOC: ER 06:13
DX: K85.20 Alcohol induced acute pancreatitis without necrosis or infection (principal); R79.89 Other specified abnormal findings of blood chemistry; I10 Essential (primary) hypertension
CPT/HCPCS: 36415; 74177; 76705; 80048; 80076; 83690; 85025; 96361; 96374; 96375; 99284; J7030; Q9967

== ENCOUNTER 2022-06-16 10:27 | Inpatient (IN) | payer SELFPAY ==
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
[2022-06-16 11:23] LABS: Absolute Lymphocytes (CBC) 1.4 K/uL (0.7-4.9); Hematocrit 49.6 % (39.6-49.0); Lymphocytes % 23.2 % (15.3-44.8); MCV 94.3 fL (80-100); MPV 8.6 fL (7.6-11.3); RBC Red Blood Cell Count 5.26 M/uL (4.33-5.43)
[2022-06-16 11:29] LABS: Protime INR 0.97
[2022-06-16 11:30] LABS: Urine Blood Negative (Negative); Urine Glucose Negative (Negative); Urine Protein Negative (Negative); Urine Specific Gravity 1.015 (1.005-1.030); Urine pH 6.5 (5.0-7.0)
[2022-06-16 11:43] LABS: Barbiturates NEGATIVE (NEGATIVE); Benzodiazepines NEGATIVE (NEGATIVE); Cocaine NEGATIVE (NEGATIVE); METHAMPHETAM NEGATIVE (NEGATIVE); Methadone NEGATIVE (NEGATIVE); Opiates NEGATIVE (NEGATIVE); Phencyclidine NEGATIVE (NEGATIVE); THC Cannibis NEGATIVE (NEGATIVE)
[2022-06-16 11:49] LABS: ALT/SGPT 93 U/L (12-78); Albumin 4.2 g/dL (3.4-5.0); Alkaline Phosphatase 85 U/L (45-117); BUN Blood Urea Nitrogen 7 mg/dL (7-18); Bicarbonate 26 mmol/L (21-32); Bilirubin Direct 0.2 mg/dL (0-0.2); Creatine Phosphokinase 110 U/L (39-308); Glomerular Filtration Rate 118 ml/min (=/>90); Glucose Level 98 mg/dL (74-106); Protein, Total 7.6 g/dL (6.4-8.2); Sodium Level 133 mmol/L (136-145)
[2022-06-16 11:52] LABS: AST/SGOT 94 U/L (15-37); Potassium 3.4 mmol/L (3.5-5.1)
[2022-06-16] MEDS ORDERED: MIDAZOLAM HCL 2 MG/2 ML INJ ONE (11:57)
--- NOTE | 2022-06-16 12:12 | ER ---
Nurse's Notes [facility] Name: Indra Abrams Age: 32 yrs Sex: Male : 1990 Arrival Date: 06/16/2022 Time: 10:29 Bed 15 Private MD: Diagnosis: Alcohol dependence with withdrawal;Essential (primary) hypertension Presentation: 06/16 10:47 Chief complaint: Patient states: Shaking, high BP, sweating x 2 days; hx of alcohol jl7 abuse x 2 years, last drink 3 days ago. Coronavirus screen: At this time, the client does not indicate any symptoms associated with coronavirus-19. Ebola Screen: No symptoms or risks identified at this time. Initial Sepsis Screen: Does the patient meet any 2 criteria? No. Patient's initial sepsis screen is negative. Does the patient have a suspected source of infection? No. Patient's initial sepsis screen is negative. Risk Assessment: Do you want to hurt yourself or someone else? Patient reports no desire to harm self or others. Onset of symptoms was June 14, 2022. 10:47 Method Of Arrival: Ambulatory 7 10:47 Acuity: CAITLIN 2 jl7 Triage Assessment: 10:51 General: Appears uncomfortable, Behavior is cooperative, anxious, crying, restless. jl7 Pain: Denies pain. Historical: - Allergies: 10:51 No Known Allergies; jl7 - Home Meds: 10:51 carvedilol 6.25 mg oral tab 1 tab 2 times per day [Active]; jl7 - PMHx: 10:51 Hypertensive disorder; Pancreatitis; Alcohol dependence; jl7 - PSHx: 10:51 None; jl7 - Immunization history:: Client reports having NOT received the Covid vaccine. - Social history:: Smoking status: Patient reports the use of cigarette tobacco products, smokes one-half pack cigarettes per day, Patient uses alcohol, on a daily basis. patient/guardian reports recent binge of alcohol consumption. Screenin:00 Clinical Adrian Withdrawal Assessment for Alcohol, revised (CIWA-Ar): jg9 Nausea/Vomitin - No nausea or vomiting Headache: 0 - Not present Paroxysmal Sweats: 0 - No sweats visible Anxiety: 4 - Moderately anxious, guarded Agitation: 0 - Normal actiivty Tremor: 4 - Moderate when client's hands extended Auditory Disturbances: 0 - Not present Visual Disturbances: 0 - Not present Tactile Disturbances: 0 - None Orientation and Clouding of Sensorium: 0 - Oriented and can do serial additions Total Score: < 10 Very mild withdrawal. 11:13 Abuse screen: Denies threats or abuse. Denies injuries from another. Nutritional jg9 screening: hx of etoh abuse. Tuberculosis screening: No symptoms or risk factors identified. Fall Risk None identified. Assessment: 12:00 Reassessment: No changes from previously documented assessment. Patient and/or family jg9 updated on plan of care and expected duration. Pain level reassessed. Patient is alert, oriented x 3, equal unlabored respirations, skin warm/dry/pink. 13:00 Reassessment: No changes from previously documented assessment. Patient and/or family jg9 updated on plan of care and expected duration. Pain level reassessed. Patient is alert, oriented x 3, equal unlabored respirations, skin warm/dry/pink. 14:00 Reassessment: No changes from previously documented assessment. Patient and/or family jg9 updated on plan of care and expected duration. Pain level reassessed. Patient is alert, oriented x 3, equal unlabored respirations, skin warm/dry/pink. 15:00 Reassessment: No changes from previously documented assessment. Patient and/or family jg9 updated on plan of care and expected duration. Pain level reassessed. Patient is alert, oriented x 3, equal unlabored respirations, skin warm/dry/pink. Vital Signs: 10:47 BP 170 / 125; Pulse 88; Resp 15; Temp 97.7; Pulse Ox 100% on R/A; Weight 86.18 kg; jl7 Height 5 ft. 8 in. (172.72 cm); Pain 0/10; 11:45 BP 157 / 109; Pulse 86; Resp 14 S; Pulse Ox 98% on R/A; Pain 0/10; jg9 13:00 BP 142 / 98; Pulse 76; Resp 15 S; Pulse Ox 100% ; Pain 0/10; jg9 13:30 BP 134 / 94; Pulse 74; Resp 15 S; Pulse Ox 98% ; Pain 0/10; jg9 14:00 BP 131 / 100; Pulse 72; Resp 17 S; Pulse Ox 97% on R/A; Pain 0/10; jg9 15:30 BP 141 / 106; Pulse 93; Resp 18 S; Pulse Ox 97% on R/A; jg9 10:47 Body Mass Index 28.89 (86.18 kg, 172.72 cm) jl7 ED Course: 10:29 Patient arrived in ED. mr 10:40 AguedaDenis DO is Attending Physician. ms3 10:51 Triage completed. jl7 10:51 Arm band placed on right wrist. jl7 11:00 Inserted saline lock: 20 gauge in right antecubital area, using aseptic technique. jg9 11:10 Kaylah Soto, RN is Primary Nurse. jg9 12:00 No apparent distress. Resting quietly. Pt visited by family. Safety Checks: Other: jg9 seizure pads in place. 12:01 Patient has correct armband on for positive identification. Bed in low position. Call jg9 light in reach. Side rails up X2. Seizure precautions initiated. 12:11 Vinicio Wiggins is Hospitalizing Provider. ms3 15:30 No apparent distress. Resting quietly. Awaiting bed assignment. jg9 16:18 No provider procedures requiring assistance completed. jg9 16:18 Patient admitted, IV remains in place. jg9 19:06 Primary Nurse role handed off by Kaylah Soto RN mw2 19:32 Dilip Lomeli, RAUL is Primary Nurse. bp Administered Medications: 11:49 Not Given (Other Intervention Used): Ativan (LORazepam) 2 mg IVP once jg9 11:51 Drug: Midazolam 5 mg Route: IVP; Site: right forearm; jg9 12:45 Follow up: Response: No adverse reaction; Anxiety decreased; RASS: Alert and Calm (0) jg9 19:34 Drug: Nicoderm CQ Patch 21 mg/24 hr 1 patches Route: Transdermal; Site: affected area; bp Medication: 16:18 VIS not applicable for this client. jg9 Outcome: 12:12 Decision to Hospitalize by Provider. ms3 16:18 Admitted to ER Hold. Please see [facility] for further documentation. jg9 16:18 Condition: stable 06/17 14:36 Patient left the ED. jg9 Signatures: Melissa Loja mr Pina Corbett RN RN jl7 Dilip Lomeli, RAUL RN bp Janie Morris mw2 Denis Romeo DO DO ms3 Kaylah Soto, RN RN jg9 Corrections: (The following items were deleted from the chart) 06/16 12:00 11:00 Inserted saline lock: 22 gauge in right antecubital area, using aseptic jg9 technique. jg9
--- NOTE | 2022-06-16 12:12 | EDPHYS ---
Physician Documentation [facility] Name: Indra Abrams Age: 32 yrs Sex: Male : 1990 Arrival Date: 06/16/2022 Time: 10:29 Bed 15 Private MD: ED Physician Denis Romeo HPI: 06/16 18:20 This 32 yrs old Male presents to ER via Ambulatory with complaints of High Blood ms3 Pressure, Alcohol Withdrawal. 18:20 The patient has elevated blood pressure and discovered this at home. Onset: The ms3 symptoms/episode began/occurred 3 day(s) ago. Modifying factors: The symptoms are aggravated by Nothing, The symptoms are alleviated by Nothing. Associated signs and symptoms: Pertinent positives: Tremors. 32-year-old Courtney with past medical history of alcoholism presents in alcohol withdrawal. Patient states his last drink was on Thursday. Patient states he drinks daily 9-10 beers per day for the previous 2 years. Patient states he has not had any alcohol since Thursday. Patient denies alleviating or inciting factors.. Historical: - Allergies: 10:51 No Known Allergies; jl7 - Home Meds: 10:51 carvedilol 6.25 mg oral tab 1 tab 2 times per day [Active]; jl7 - PMHx: 10:51 Hypertensive disorder; Pancreatitis; Alcohol dependence; jl7 - PSHx: 10:51 None; jl7 - Immunization history:: Client reports having NOT received the Covid vaccine. - Social history:: Smoking status: Patient reports the use of cigarette tobacco products, smokes one-half pack cigarettes per day, Patient uses alcohol, on a daily basis. patient/guardian reports recent binge of alcohol consumption. ROS: 18:20 Constitutional: Negative for fever, and chills. Neck: Negative for injury, pain, and ms3 swelling, Cardiovascular: Negative for chest pain, and palpitations. Respiratory: Negative for shortness of breath, cough, wheezing, and pleuritic chest pain, Abdomen/GI: Negative for abdominal pain, nausea, vomiting, diarrhea, and constipation, MS/Extremity: Negative for injury and deformity, Skin: Negative for injury, rash, and discoloration. 18:20 Neuro: Positive for tremor. 18:20 All other systems are negative. Exam: 11:00 ECG was reviewed by the Attending Physician. ms3 18:20 Constitutional: This is a well developed, well nourished patient who is awake, alert, ms3 and in no acute distress. Head/Face: Normocephalic, atraumatic. Neck: Trachea midline, no cervical lymphadenopathy. Supple, full range of motion without nuchal rigidity, or vertebral point tenderness. No Meningismus. Chest/axilla: Normal chest wall appearance and motion. Nontender with no deformity. Cardiovascular: Regular rate and rhythm with a normal S1 and S2. No gallops, murmurs, or rubs. Normal PMI, no JVD. No pulse deficits. Respiratory: Lungs have equal breath sounds bilaterally, clear to auscultation and percussion. No rales, rhonchi or wheezes noted. No increased work of breathing, no retractions or nasal flaring. Abdomen/GI: Soft, non-tender, with normal bowel sounds. No distension or tympany. No guarding or rebound. No evidence of tenderness throughout. Skin: Warm, dry with normal turgor. Normal color with no rashes, no lesions, and no evidence of cellulitis. MS/ Extremity: Pulses equal, no cyanosis. Neurovascular intact. Full, normal range of motion. Psych: Awake, alert, with orientation to person, place and time. Behavior, mood, and affect are within normal limits. 18:20 Neuro: Orientation: is normal, Mentation: is normal, Memory: is normal, Cerebellar function: is grossly normal, Motor: is normal, Sensation: is normal, Abnormal movements: resting tremor, is located in the right arm and left arm. Vital Signs: 10:47 BP 170 / 125; Pulse 88; Resp 15; Temp 97.7; Pulse Ox 100% on R/A; Weight 86.18 kg; jl7 Height 5 ft. 8 in. (172.72 cm); Pain 0/10; 11:45 BP 157 / 109; Pulse 86; Resp 14 S; Pulse Ox 98% on R/A; Pain 0/10; jg9 13:00 BP 142 / 98; Pulse 76; Resp 15 S; Pulse Ox 100% ; Pain 0/10; jg9 13:30 BP 134 / 94; Pulse 74; Resp 15 S; Pulse Ox 98% ; Pain 0/10; jg9 14:00 BP 131 / 100; Pulse 72; Resp 17 S; Pulse Ox 97% on R/A; Pain 0/10; jg9 15:30 BP 141 / 106; Pulse 93; Resp 18 S; Pulse Ox 97% on R/A; jg9 10:47 Body Mass Index 28.89 (86.18 kg, 172.72 cm) jl7 MDM: 10:56 Patient medically screened. ms3 18:20 Differential diagnosis: hypertensive crisis, Alcohol withdrawal vs Benign tremor. Data ms3 reviewed: vital signs, nurses notes, lab test result(s), EKG, and as a result, I will admit patient. Data interpreted: food and beverage attendant: rate is 93 beats/min, rhythm is normal sinus rhythm, regular, with no ectopy, Interpretation: normal rate, normal rhythm. Counseling: I had a detailed discussion with the patient and/or guardian regarding: the historical points, exam findings, and any diagnostic results supporting the discharge/admit diagnosis, lab results, the need for further work-up and treatment in the hospital. 06/16 10:52 Order name: Acetaminophen; Complete Time: 11:54 ms3 06/16 10:52 Order name: BMP; Complete Time: 11:54 ms3 06/16 10:52 Order name: CBC with Diff; Complete Time: 11:54 ms3 06/16 10:52 Order name: Ethanol; Complete Time: 11:54 ms3 06/16 10:52 Order name: Hepatic Function; Complete Time: 11:54 ms3 06/16 10:52 Order name: Protime (+inr); Complete Time: 11:54 ms3 06/16 10:52 Order name: Ptt, Activated; Complete Time: 11:54 ms3 06/16 10:52 Order name: Salicylate; Complete Time: 12:06 ms3 06/16 10:52 Order name: Urine Drug Screen; Complete Time: 11:54 ms3 06/16 10:52 Order name: CK; Complete Time: 11:54 ms3 06/16 11:30 Order name: Urine Dipstick-Ancillary; Complete Time: 11:54 EDMS 06/16 12:36 Order name: SARS RAPID; Complete Time: 18:19 jg9 06/16 18:18 Order name: Lipase; Complete Time: 18:19 EDMS 06/17 03:21 Order name: CBC with Automated Diff; Complete Time: 13:38 EDMS 06/16 10:52 Order name: EKG; Complete Time: 10:54 ms3 06/16 10:52 Order name: EKG - Nurse/Tech; Complete Time: 11:13 ms3 06/16 10:52 Order name: IV Saline Lock; Complete Time: 11:13 ms3 06/16 10:52 Order name: Labs collected and sent; Complete Time: 11:13 ms3 06/16 10:52 Order name: O2 Sat Monitoring; Complete Time: 11:13 ms3 06/16 10:52 Order name: Urine Dipstick-Ancillary (obtain specimen); Complete Time: 11:47 ms3 06/17 03:42 Order name: Basic Metabolic Panel; Complete Time: 13:38 EDMS 06/17 03:42 Order name: Liver (Hepatic) Function; Complete Time: 13:38 EDMS 06/17 03:42 Order name: Lipase; Complete Time: 13:38 EDMS 06/17 14:17 Order name: Potassium EDMS EC:00 Rate is 87 beats/min. Rhythm is regular. QRS Yantis is Normal. IA interval is normal. ms3 Clinical impression: Normal ECG. Interpreted by me. Reviewed by me. Administered Medications: 11:49 Not Given (Other Intervention Used): Ativan (LORazepam) 2 mg IVP once jg9 11:51 Drug: Midazolam 5 mg Route: IVP; Site: right forearm; jg9 12:45 Follow up: Response: No adverse reaction; Anxiety decreased; RASS: Alert and Calm (0) jg9 19:34 Drug: Nicoderm CQ Patch 21 mg/24 hr 1 patches Route: Transdermal; Site: affected area; bp Disposition Summary: 06/16/22 12:12 Hospitalization Ordered Hospitalization Status: Observation ms3 Provider: Vinicio Wiggins ms3 Condition: Stable ms3 Problem: new ms3 Symptoms: are unchanged ms3 Bed/Room Type: Standard ms3 Location: [facility] ER HOLD(06/17/22 14:33) Room Assignment: ERHOLD-(06/17/22 14:33) iw Diagnosis - Alcohol dependence with withdrawal ms3 - Essential (primary) hypertension ms3 Forms: - Medication Reconciliation Form ms3 - SBAR form ms3 Signatures: Dispatcher [employer] EDFL Elyssa Mccullough Irene RN RN iw Pina Corbett RN RN jl7 Dilip Lomeli, RN RN bp Denis Romeo, DO ms3 Kaylah Soto, RN RN jg9 Corrections: (The following items were deleted from the chart) 15:48 12:12 Telemetry/MedSurg (observation) ms3 ms3 15:48 12:12 ms3 ms3 06/17 13:22 08 15:48 [facility] ER HOLD ms3 bd 06/17 13:22 06/16 15:48 ERHOLD- ms3 bd 06/17 14:33 13:22 Telemetry/MedSurg (observation) bd iw 14:33 13:22 204 bd iw
[2022-06-16 14:04] LABS: SARS-CoV-2 Antigen Rapid Res Negative (Negative)
[2022-06-16] MEDS ORDERED: THIAMINE HCL 100 MG TABLET ONE (14:39)
[2022-06-16] MEDS ORDERED: ACETAMINOPHEN 500 MG TAB PO PRN (14:52)
[2022-06-16] MEDS ORDERED: ONDANSETRON 4 MG/2 ML VIAL IV PRN (14:52)
[2022-06-16] MEDS ORDERED: FLUMAZENIL 0.1 MG/ML (5 mL VIAL) IV PRN (14:58)
[2022-06-16] MEDS ORDERED: ONDANSETRON 4 MG (ODT) TAB PO PRN (14:58)
[2022-06-16] MEDS ORDERED: LORAZEPAM 1 MG TABLET PO PRN (14:58)
[2022-06-16] MEDS ORDERED: MAGNES/ALUMIN/SIMET 30ML UCUP PO PRN (14:58)
[2022-06-16] MEDS: LORAZEPAM 1 MG TABLET PO SCH ×3 (15:00→23:00)
[2022-06-16] MEDS ORDERED: TRAMADOL HCL 50 MG TAB PO PRN (15:09)
--- NOTE | 2022-06-16 15:10 | P.HP ---
Certification for Inpatient Patient admitted to: Observation With expected LOS: <2 Midnights Patient will require the following post-hospital care: None Practitioner: I am a practitioner with admitting privileges, knowledge of patient current condition, hospital course, and medical plan of care. Services: Services provided to patient in accordance with Admission requirements found in Title 42 Section 412.3 of the Code of Federal Regulations Patient History Date of Service: 06/16/22 Reason for admission: Tremors and hypertensive urgency. History of Present Illness: Patient is a 32-year-old male with a past medical history significant for hypertension, pancreatitis, alcohol dependence who presents with complaint of tremors and elevated blood pressure. Patient reported that he has been binge drinking for 7 days and he stopped drinking 3 days ago. Yesterday patient started having tremors and mild abdominal pain rated as 5/10 in severity and described as aching in quality. Patient reported associated signs and symptoms of intermittent palpitations, diaphoresis, headache, diarrhea, nausea, chills, dizziness, poor gait and generalized malaise. Patient reported that he drinks every day with an average of 8-12 beers a day. Patient denies any other signs and symptoms. Symptoms are aggravated or relieved by nothing. Patient reported that he went to an alcohol rehab facility today and was not admitted to the facility because his blood pressure was too high with SBP in the 180s. Patient consequently decided to present to the hospital for medical evaluation. Allergies No Known Allergies Allergy (Verified 06/16/22 16:10) Home medications list reviewed: Yes Home Medications: carvediloL [Carvedilol] 1 tab PO BID 06/16/22 - Past Medical/Surgical History -: HTN -: Pancreatitis -: Alcohol Dependence Past Surgical History: Patient denies surgical history - Family History Family History: Reviewed- Non-Contributory - Social History Smoking Status: Current every day smoker Counseled patient to stop smoking for: less than 10 minutes Smoking therapy provided: Yes Patient receptive to therapy: Yes Alcohol use: Yes CD- Drugs: No Caffeine use: No Place of Residence: Home Review of Systems General: Chills, Sweats, Malaise Eyes: Unremarkable ENT: Unremarkable Respiratory: Unremarkable Cardiovascular: Palpitations Gastrointestinal: Nausea, Vomiting, Abdominal Pain, Diarrhea Genitourinary: Unremarkable Musculoskeletal: Other (Gait abnormality ) Integumentary: Unremarkable Neurological: Unremarkable Physical Examination - Physical Exam General: Alert, Oriented x3, Cooperative HEENT: Normocephalic, PERRLA Neck: 2+ carotid pulse no bruit, JVD not distended Respiratory: Clear to auscultation bilaterally, Normal air movement Cardiovascular: Normal pulses, Regular rate/rhythm Capillary refill: <2 Seconds Gastrointestinal: Normal bowel sounds, Soft and benign Musculoskeletal: No clubbing, No swelling, No contractures, No erythema Integumentary: No rashes, No breakdown, No significant lesion, No tenderness/swelling Neurological: Normal speech, Sensation intact, Abnormal gait Lymphatics: No axilla or inguinal lymphadenopathy - Studies Laboratory Data (last 24 hrs) 06/16/22 11:00: PT 10.7, INR 0.97, APTT 30.3 06/16/22 11:00: WBC 6.00, Hgb 17.3, Hct 49.6 H, Plt Count 128 L 06/16/22 11:00: Sodium 133 L, Potassium 3.4 L, BUN 7, Creatinine 0.85, Glucose 98, Total Bilirubin 1.0, AST 94 H, ALT 93 H, Alkaline Phosphatase 85 Assessment and Plan - Plan --Alcohol abuse. Patient currently experiencing withdrawal symptoms. Patient placed on banana bag, Librium and Ativan. CIWA protocol. -- Hypertensive urgency. Patient reported that he has not been compliant with his home medication. We will manage blood pressure with coreg and labetalol as needed. --History of pancreatitis. Stable. Continue supportive care. -- Nicotine dependence. Patient counseled on tobacco cessation placed on nicotine patch. --Nausea and vomiting. Antiemetic on board. --Headache. Tylenol as needed. --Intermittent palpitation. Likely secondary to alcohol withdrawal. Telemetry to monitor for any significant arrhythmia. --Abnormality of gait and mobility. Secondary to alcohol withdrawal. Continue supportive care. --Thrombocytopenia. Likely secondary to liver disease. Continue supportive care. --Hypokalemia. Replete as needed. --Diarrhea. Patient denies any current episode of diarrhea. Continue supportive care --Elevated LFTs. Likely secondary to liver disease. Continue supportive care --DVT prophylaxis with SCDs Discharge Plan: Home Plan to discharge in: 48 Hours - Advance Directives Does patient have a Living Will: No Does patient have a Durable POA for Healthcare: No - Code Status/Comfort Care Code Status Assessed: Yes Code Status: Full Code Physician Review: Patient Assessed, Agree with Above Assessment and Plan Critical Care: No
[2022-06-16] MEDS ORDERED: POTASSIUM CL SA 10 MEQ TAB PO ONE (16:00)
[2022-06-16] MEDS ORDERED: LABETALOL 20 MG/4ML SYRINGE IV PRN (16:24)
[2022-06-16] MEDS ORDERED: TRAMADOL HCL 50 MG TAB ONE (17:42)
[2022-06-16] MEDS ORDERED: LORAZEPAM 1 MG TABLET ONE ×3 (17:42→23:36)
[2022-06-16] MEDS: chlordiazePOXIDE HCl 25 MG CAP PO SCH (18:00)
[2022-06-16 18:17] VITALS: BMI 28.8
[2022-06-16] MEDS ORDERED: chlordiazePOXIDE HCl 25 MG CAP ONE (19:25)
[2022-06-16] MEDS ORDERED: NICOTINE 21 MG/PAT TD ONE (19:41)
[2022-06-16] MEDS: carvediloL 6.25 MG TAB PO SCH (20:21)
[2022-06-16] MEDS ORDERED: carvediloL 6.25 MG TAB ONE (20:28)
[2022-06-16 20:31] VITALS: TEMP 97.7
[2022-06-17] MEDS ORDERED: chlordiazePOXIDE HCl 25 MG CAP ONE ×3 (00:22→14:28)
[2022-06-17] MEDS: LORAZEPAM 1 MG TABLET PO SCH ×2 (03:00→06:37)
[2022-06-17 03:13] LABS: Absolute Lymphocytes (CBC) 1.3 K/uL (0.7-4.9); Hematocrit 44.7 % (39.6-49.0); Lymphocytes % 34.1 % (15.3-44.8); MCV 93.4 fL (80-100); MPV 8.7 fL (7.6-11.3); RBC Red Blood Cell Count 4.79 M/uL (4.33-5.43)
[2022-06-17 03:42] LABS: Albumin 3.6 g/dL (3.4-5.0); Bilirubin Direct 0.1 mg/dL (0-0.2); Bilirubin Total 0.6 mg/dL (0.2-1.0); Potassium 3.3 mmol/L (3.5-5.1); Protein, Total 6.7 g/dL (6.4-8.2)
[2022-06-17] MEDS ORDERED: LORAZEPAM 1 MG TABLET ONE ×2 (03:47→06:37)
[2022-06-17] MEDS: chlordiazePOXIDE HCl 25 MG CAP PO SCH ×3 (06:00→12:00)
--- NOTE | 2022-06-17 06:39 | P.PN ---
Date of Service: 06/17/22
[2022-06-17] MEDS ORDERED: POTASSIUM CL SA 10 MEQ TAB PO ONE ×2 (07:37→07:51)
[2022-06-17] MEDS ORDERED: NICOTINE 21 MG/PAT TD ONE (07:51)
--- NOTE | 2022-06-17 08:15 | EKG ---
Test Date: 2022-06-16 Test Time: 11:00:06 Contact Agent: OPAL MEASUREMENT RESULTS: Intervals: Rate: 87 SC: 130 QRSD: 84 QT: 362 QTc: 435 [place]: P: 71 SC: 130 QRS: 75 T: 66 INTERPRETIVE STATEMENTS: Normal sinus rhythm Normal ECG No previous ECG available for comparison Electronically Signed On 06-17-22 08:11:22 CDT by Cali Nugent
[2022-06-17] MEDS ORDERED: NICOTINE 21 MG/PAT TD SCH (09:00)
[2022-06-17] MEDS ORDERED: FOLIC ACID 1 MG, MULTIVITAMINS INJ 10 ML, THIAMINE HCL 100 MG in NA CHLORIDE 0.9% 1,000 ML IV SCH (09:00)
[2022-06-17] MEDS ORDERED: ENOXAPARIN 40 MG/0.4 ML SQ SCH (09:00)
[2022-06-17] MEDS: carvediloL 6.25 MG TAB PO SCH (09:00)
--- NOTE | 2022-06-17 14:04 | P.DS ---
Admission Date: 06/16/22 Discharge Date: 06/17/22 Disposition: ROUTINE DISCHARGE Discharge Condition: GOOD Reason for Admission: Tremors and hypertensive urgency. Brief History of Present Illness: 32yo M, PMH: HTN, pancreatitis, alcohol dependence with prior mild withdrawal symptoms. Presents to ED due to elevated blood pressure and tremors. Patient was binge drinking x7 days, last drank ~3 days ago. He went to an alcohol rehab facility but was turned away due to significantly elevated blood pressure readings. Associated symptoms: intermittent palpitations, abdominal pain, diaphoresis, headache, nausea, chills, generalized malaise. Denied history of seizures, no hallucinations. He was drinking ~8-12 beers/day. Hospital Course: Problem List Alcohol dependence with acute withdrawal symptoms HTN h/o pancreatitis Patient presented to ER with high blood pressure and symptoms consistent with alcohol withdrawal. He was restarted on his home dose carvedilol and treated with benzodiazepine (librium) for withdrawal. He had significant improvement and remained stable. He felt better and requested discharge home. He was tolerating diet without issue, vitals within normal limits and stable. Discharged home with a 3 day taper of librium for his withdrawal symptoms. Continue carvedilol. Follow up with PCP within 1 week. Discussed alcohol avoidance, and risk of concomitant use of alcohol with benzodiazepines. Patient reports he will be staying with a friend and has no intention of drinking alcohol. Plans to try to get into a rehab facility later this week. Vital Signs/Physical Exam: Temp Pulse Resp BP Pulse Ox 97.7 F 68 18 98/72 99 06/17/22 06:00 06/17/22 09:00 06/17/22 08:00 06/17/22 09:00 06/17/22 08:00 General: Alert, In no apparent distress, Oriented x3 HEENT: Sclerae nonicteric Neck: Supple, No LAD Respiratory: Clear to auscultation bilaterally, Normal air movement Cardiovascular: No edema, Regular rate/rhythm Gastrointestinal: Soft and benign, Non-distended, No tenderness Musculoskeletal: No contractures, No tenderness Integumentary: No rashes, No significant lesion Neurological: Normal speech, Normal strength at 5/5 x4 extr, Normal affect, Other (mild tremors: b/l hands) Laboratory Data at Discharge: WBC 3.70 K/uL (4.3-10.9) L D 06/17/22 02:23 Hgb 15.6 g/dL (13.6-17.9) 06/17/22 02:23 Hct 44.7 % (39.6-49.0) 06/17/22 02:23 Plt Count 106 K/uL (152-406) L 06/17/22 02:23 PT 10.7 SECONDS (9.5-12.5) 06/16/22 11:00 INR 0.97 06/16/22 11:00 APTT 30.3 SECONDS (24.3-36.9) 06/16/22 11:00 Sodium 136 mmol/L (136-145) 06/17/22 02:23 Potassium 3.3 mmol/L (3.5-5.1) L 06/17/22 02:23 BUN 6 mg/dL (7-18) L 06/17/22 02:23 Creatinine 0.70 mg/dL (0.55-1.3) 06/17/22 02:23 Glucose 107 mg/dL (74-106) H 06/17/22 02:23 Total Bilirubin 0.6 mg/dL (0.2-1.0) 06/17/22 02:23 AST 67 U/L (15-37) H 06/17/22 02:23 ALT 82 U/L (12-78) H 06/17/22 02:23 Alkaline Phosphatase 73 U/L (45-117) 06/17/22 02:23 Lipase 304 U/L (73-393) 06/17/22 02:23 Home Medications: carvediloL [Carvedilol] 1 tab PO BID 06/16/22 chlordiazePOXIDE HCl [Librium*] 25 mg PO SEECOM 3 Days #6 cap 06/17/22 New Medications: chlordiazePOXIDE HCl [Librium*] 25 mg PO SEECOM 3 Days #6 cap Physician Discharge Instructions: Patient presented to ER with high blood pressure and symptoms consistent with alcohol withdrawal. He was restarted on his home dose carvedilol and treated with benzodiazepine (librium) for withdrawal. He had significant improvement and remained stable. He felt better and requested discharge home. He was tolerating diet without issue, vitals within normal limits and stable. Discharged home with a 3 day taper of librium for his withdrawal symptoms. Continue carvedilol. Follow up with PCP within 1 week. Discussed alcohol avoidance, and risk of concomitant use of alcohol with benzodiazepines. Patient reports he will be staying with a friend and has no intention of drinking alcohol. Plans to try to get into a rehab facility later this week. Followup: NONE,NONE [Primary Care Provider] - Time spent managing pt's care (in minutes): 45
[2022-06-17 15:03] VITALS: O2SAT 97
[2022-06-17 15:06] VITALS: BP 141/106
[2022-06-18] MEDS ORDERED: LORAZEPAM 1 MG TABLET PO SCH (15:00)
== END 2022-06-17 14:38 | disposition home or self-care (01) | DRG 897 ==
LOC: ER 10:27 → ERHOLD 13:38 → OBSVTOIN 18:04
PROVIDERS: ADMIT Internal Medicine; ATTEND Internal Medicine
DX: F10.239 Alcohol dependence with withdrawal, unspecified (principal); I16.0 Hypertensive urgency; R51.9 Headache, unspecified; R00.2 Palpitations; D69.6 Thrombocytopenia, unspecified; E87.6 Hypokalemia; R19.7 Diarrhea, unspecified; K76.9 Liver disease, unspecified; F17.210 Nicotine dependence, cigarettes, uncomplicated; Z20.822 Contact with and (suspected) exposure to COVID-19
CPT/HCPCS: 36415; 80048; 80076; 80307; 80320; 80329; 81003; 82550; 83690; 84132; 85025; 85610; 85730; 87811; 93005; 96374; 99285; G0378; J2250; J3411; J7030